=== PATIENT | female | born 1940 | race Caucasian/White ===

== ENCOUNTER 2017-10-21 08:53 | Day surgery (SDC) | payer OTHER ==
[~2017-10-21] VITALS: Ht 165.1 cm; Wt 72.5 kg
[2017-10-21] MEDS ORDERED: SODIUM CHLORID 0.9% 500 ML BAG OTHER ONE (08:54)
[2017-10-21 10:18] VITALS: BP 170/85; PULSE 81; RESP 16; TEMP 98.2; O2SAT 100
[2017-10-21] MEDS ORDERED: VERA120T3 PO (10:25)
[2017-10-21] MEDS ORDERED: VITA250C3 CHEW (10:25)
[2017-10-21] MEDS ORDERED: VITA100021 SL (10:25)
[2017-10-21] MEDS ORDERED: AMLO2.5T PO (10:25)
[2017-10-21] MEDS ORDERED: ASPI-516 CHEW (10:25)
[2017-10-21] MEDS ORDERED: CLON0.5T PO (10:25)
[2017-10-21] MEDS ORDERED: UNIS25TA3 (10:25)
[2017-10-21] MEDS ORDERED: DIAZ10 PO (10:25)
[2017-10-21] MEDS ORDERED: DAPS5TAB PO (10:25)
[2017-10-21 10:32] LABS: APTT (PATIENT) 27.1 SEC (24.3-30.1); INTERNATIONAL NORMALIZED RATIO 1.1 RATIO; PROTHROMBIN TIME - PATIENT 10.7 SEC (9.8-11.6)
[2017-10-21 10:36] LABS: BASOPHIL % 0.6 % (0.0-2.0); EOSINOPHIL # 0.1 TH/MM3 (0-0.4); EOSINOPHIL % 2.6 % (0.0-4.0); HEMATOCRIT 39.9 % (35.0-46.0); HEMO FLAGS DIFF FINAL; LYMPH % 36.5 % (9.0-44.0); LYMPHOCYTE # 1.4 TH/MM3 (1.0-4.8); MEAN CELL VOLUME 91.7 FL (80.0-100.0); MEAN CORPUSCULAR HEMOGLOBIN 30.4 PG (27.0-34.0); MEAN CORPUSCULAR HGB CONC 33.1 % (32.0-36.0); NEUT % 51.3 % (16.0-70.0); PLATELET COUNT 169 TH/MM3 (150-450); RED BLOOD COUNT 4.35 MIL/MM3 (4.00-5.30); RED CELL DISTRIBUTION WIDTH 13.2 % (11.6-17.2); WHITE BLOOD COUNT 3.9 TH/MM3 (4.0-11.0)
[2017-10-21 10:48] LABS: POTASSIUM 3.9 MEQ/L (3.5-5.1)
[2017-10-21] MEDS ORDERED: SODIUM CHLORID 0.9% 500 ML INJ 500 ML IV SCH (12:00)
[2017-10-21] MEDS ORDERED: LORazepam 1 MG TAB SL SCH (12:00)
[2017-10-21] MEDS ORDERED: SODIUM CHLOR 0.9% 250 ML INJ 250 ML ONE (12:36)
[2017-10-21] MEDS ORDERED: ISOPROTERENOL HCL 1 MG/5 ML AMP ONE (12:36)
[2017-10-21] MEDS ORDERED: ceFAZolin INJ 1,000 MG VIAL ONE (13:10)
--- NOTE | 2017-10-21 13:30 | CATHPROC ---
[employer] HIS Report Study Information Study Number Admission Scheduled Start Study Start [id number] Oct 21 2017 8:53AM 10/21/2017 Oct 21 2017 11:55AM [place] Service Electrophysiology Study Admit Source Facility Department Other [facility] - Extractor Operator Physician and Clinical Staff Initial Sherrie Simons Insulating Machine Operator Shereen Card,SCIENCE TEACHER TECH2 Other Anesthesia, PASSENGER TIRE INSPECTOR Recorder Efrain Ann,RN Recorder Sunshine Diallo,BSRN Scrub Dannie Jimenez,RT(R) Equipment Time Computer Builder Description Size Mfg Part Number Used/Scraped [id number] 11:59 [employer] INDUSTRIES PACK, CCL CUSTOM * Used *[id number] 11:59 [employer] PACER WHITLEY, LIMB * 2530 *[id number] Used [id number] 11:59 [employer] Dog BLANKET,WARM AIR CCL * Used *[id number] 12:20 [employer] MED[employer] CATHETER, JSN, QUAD FR 5 Used *[id number] 12:20 [employer] MEDICAL CATHETER, JSN, QUAD FR 5 Used *[id number] 12:20 [employer] MEDICAL CATHETER, JSN, QUAD FR 5 Used *[id number] 12:21 [employer] MEDICAL CATHETER, JSN, QUAD FR 5 Used *[id number] [id number] 12:19 [employer] MEDICAL SHEATH, EPS, FR5 FAST CATH FR 5 Used *[id number] [id number] 12:20 [employer] MEDICAL SHEATH, EPS, FR5 FAST CATH FR 5 Used *[id number] 12:20 [employer] MEDICAL SHEATH, EPS, FR5 FAST CATH FR 5 Used *[id number] 12:20 [employer] MEDICAL SHEATH, EPS, FR6 FAST CATH FR 6 Used *[id number] 12:56 [employer] Used INSERTION *[id number] History: Current Medications Medication Dosage/Unit Route Frequency Last Date/Time Taken ASA History: Allergies Allergy Reaction No Known Allergies iodine History: Risk Factors Hypertension Yes Labs Hgb (g/dl) Hct (%) RBC (MIL/MM3) WBC (l/cumm) Platelets (thousands) 11.60-17.00 35.00-51.00 4.00-5.90 4.00-11.00 150.00-450.00 13.2 39.9 4.3 3.9 169 Glucose (mg/dl) BUN (mg/dl) Creatinine (mg/dl) BUN:Creatinine (1:x) 74.00-106.00 7.00-18.00 0.50-1.30 10.00-20.00 97 11 0.6 18.3 Na (meq/l) K (meq/l) Cl (meq/l) CO2 (mmol/L) Ca (mg/dl) 136.00-145.00 3.50-5.10 98.00-107.00 21.00-32.00 8.50-10.10 140 3.9 105 29 8.9 INR (PTT:PT) 0.90-1.10 1.1 Medication Medication Total Dose (Bolus/Oral) Medication Total Dosage/Unit 1% XYLOCAINE 20 mL LIDOCAINE 30 mg Medications (Bolus/Oral) Medication Time Given Dosage/Unit Administered By Reason 1% XYLOCAINE 10/21/2017 12:34:42 PM 20 mL Sherrie Alarcon 20 mL 1% XYLOCAINE given in lab by Sherrie Alarcon in Right Groin via Subcutaneous. Ordered by Lashon Alarcon. LIDOCAINE 10/21/2017 1:03:45 PM 30 mg Sherrie Alarcon 30 mg LIDOCAINE given in lab by Sherrie Alarcon in CHEST . Ordered by Sherrie Alarcon. Medication (Drip) Medication Time Given Dosage/Unit Concentration/Unit Diluent (ml) Solution ISUPREL 10/21/2017 12:49:53 PM 2 mcg/min 1 mg 250 NaCl .9 2 mcg/min ISUPREL given in lab by Anesthesia, PASSENGER TIRE INSPECTOR via Peripheral IV. Pump/Drip Flow = 30 ml/hr using NaCl .9 with a concentration of 1 mg in 250 ml. Ordered by Sherrie Alarcon. IV Solutions 10/21/2017 12:12:29 PM 0 mL (IV) NaCl .9 IV Solutions given in lab by Anesthesia, PASSENGER TIRE INSPECTOR in Left Antecubital via Peripheral IV. Pump/Drip Flow = 50 ml/hr using NaCl .9. Ordered by Sherrie Alarcon. Reason: As per physicians verbal order. IV Solutions 10/21/2017 12:12:52 PM 0 mL (IV) NaCl .9 IV Solutions given in lab by Anesthesia, PASSENGER TIRE INSPECTOR in Left Antecubital via Peripheral IV. Pump/Drip Flow = 50 ml/hr using NaCl .9. Ordered by Sherrie Alarcon. Reason: As per physicians verbal order. Initial Case Assessment Cardiovascular HR NIBP Chest Pain 82 134/79 0 Edema Present Skin color Skin None Normal Warm Dry Neurological State Oriented to time-place- Alert Moves all extremities person Respiration - General Respiration Rate SpO2 (%) (B/min) 18 98 Chronological Log Time Study Chronological Log 12:07:35 Patient arrived via Bed. 12:07:38 Patient Name, D.O.B, / Armband Verified By R.N. 12:07:40 Consent signed by the physician and the patient and verified by the Extractor Operator staff. 12:07:41 Pre-op and post- op instructions given; patient acknowledges understanding of instruction s. 12:07:43 Verbal Stimulation=2 Physical Stimulation=2 Airway=2 Respiration=2 TOTAL=10. (0=absent, 1 =limited, 2=present) 12:07:54 Anesthesia at bedside. Assumes care of patient. Brendan PASSENGER TIRE INSPECTOR 12:08:03 Patient has been NPO for More than 6Hrs. 12:08:06 Immediate Presedation assesment performed by physician. 12:08:08 Skin Breakdown- left leg thigh wound 12:12:04 Patient Warmer Placed on the Table. 12:12:07 Disposable Defibrillator Pads Placed On Patient. 12:12:09 Juan M Prominences Protected 12:12:12 A # 20 IV was noted in the Antecubital (left). Grade = ~GRADE~ 12:12:21 A # 20 IV was noted in the Antecubital (right). Grade = ~GRADE~ IV Solutions given in lab by Anesthesia, PASSENGER TIRE INSPECTOR in Left Antecubital via Peripheral IV. Pump/Dri p Flow = 50 ml/hr using 12:12:29 NaCl .9. Ordered by Sherrie Alarcon. Reason: As per physicians verbal order. IV Solutions given in lab by Anesthesia, PASSENGER TIRE INSPECTOR in Left Antecubital via Peripheral IV. Pump/Dri p Flow = 50 ml/hr using 12:12:52 NaCl .9. Ordered by Sherrie Alarcon. Reason: As per physicians verbal order. 12:13:09 History and physical on the chart or being dictated. Assessment: Initial Case, HR=82 BPM, NBAX=699/79 mmhg, Chest Pain=0, Edema=None, Color=Normal, Skin = Warm, Dry 12:13:12 Neurological: State=Alert, Ox3, MORRIS Respiration: Resp=18 B/min, SpO2=98 % 12:13:15 Table restraints applied according to hospital policy 12:13:18 Right groin prepped with 2% chlorhexidine, and draped after a 3 min. waiting time. 12:13:20 Left groin prepped with 2% chlorhexidine, and draped after a 3 min. waiting time. 12::28 MD notified ready. 12::57 MD responded. Time Out. Correct patient, procedure, procedure equipment, site and side verified with physicia n present. Time 12:34:26 concurred by MD, individual staff and PASSENGER TIRE INSPECTOR. Time Out #2 - Consents verified, patient in correct position, all results are labled and displa yed, safety precautions :: taken, antibiotics administered. Time out concurred by MD, individual staff and PASSENGER TIRE INSPECTOR in procedu re 12:34:30 Case Start 12:34:42 20 mL 1% XYLOCAINE given in lab by Sherrie Alarcon in Right Groin via Subcutaneous. Ordered b y Sherrie Alarcon. 12:36:47 A SHEATH, EPS, FR5 FAST CATH FR 5 was advanced into the Fem Vein (right) using the Modified Seldinger technique. 12:37:24 A SHEATH, EPS, FR5 FAST CATH FR 5 was advanced into the Fem Vein (right) using the Modified Seldinger technique. 12:37:27 A SHEATH, EPS, FR5 FAST CATH FR 5 was advanced into the Fem Vein (right) using the Modified Seldinger technique. 12:37:31 A SHEATH, EPS, FR6 FAST CATH FR 6 was advanced into the Fem Vein (right) using the Modified Seldinger technique. A CATHETER, JSN, QUAD FR 5 was advanced vis Fem Vein (right) and placed in the HRA. Placement w as visually 12:38:31 confirmed under fluoroscopy. A CATHETER, JSN, QUAD FR 5 was advanced vis Fem Vein (right) and placed in the HIS. Placement w as visually 12:38:47 confirmed under fluoroscopy. A CATHETER, JSN, QUAD FR 5 was advanced vis Fem Vein (right) and placed in the RVA. Placement w as visually 12:38:56 confirmed under fluoroscopy. A CATHETER, JSN, QUAD FR 5 was advanced vis Fem Vein (right) and placed in the RVOT. Placement was visually 12:39:03 confirmed under fluoroscopy. 12:40:59 EP STUDY IN PROGRESS 2 mcg/min ISUPREL given in lab by Anesthesia, PASSENGER TIRE INSPECTOR via Peripheral IV. Pump/Drip Flow = 30 ml/hr using NaCl .9 with 12:49:53 a concentration of 1 mg in 250 ml. Ordered by Sherrie Alarcon. EP STUDY COMPLETE 12:55:08 ISUPREL OFF EP STUDY COMPLETE 13:01:13 LOOP INSERT 13:03:25 CHEST PREPPED X 2 13:03:45 30 mg LIDOCAINE given in lab by Sherrie Alarcon in CHEST . Ordered by Sherrie Alarcon. 13:04:55 LOOP INSERTED 13:05:04 TESTING DEVICE 13:10:09 Cine recording checked. 13:10:15 Bedside Report will be given. 13:10:19 Implantable Device card placed in patient's chart. 13:10:23 Defibrillator and ground pads removed. Skin intact. 13:11:43 Sheaths removed; pressure applied to access site by Monique Stephenson. Hemostasis achieved. 13:20:00 Sterile dressing applied to site 13:21:00 No case complications noted. 13:28:51 Case End 13:40:00 Patient moved to [facility] and transported to [facility] in stable condition. End Study - Contrast Media Used In Study Contrast Total Opened (mL) Total Used (mL) Total Wasted (mL) Unspecified 0 0 0 End Study - Maximum Contrast Load Max Contrast Load (mL) 604.2 End Study - Radiation Exposure Fluoro Time (minutes) 1.2 End Study - Patient Disposition Complications Transferred To Interventional Outcome No Telemetry Bed successful
--- NOTE | 2017-10-22 14:30 | EKG ---
Date Performed: 10/21/2017 Time Performed: 10:25:12 PTAGE: 76 years EKG: Sinus rhythm . Right bundle branch block Inferior/lateral T wave changes Low QRS voltages in precordial leads Abno rmal ECG NO PREVIOUS TRACING DOCTOR: Grecia Sagastume Interpretating Date/Time 10/22/2017 14:25:46
--- NOTE | 2017-10-23 19:54 | MA ---
cc: XENA SCOTT M.D. DATE 10/23/2017 Electrophysiology study, CS cannulation, repeat electrophysiology study on Isuprel infusion, 3-D mapping for catheter placement. INDICATION Ms. Flood is a 76-year-old female with recurrent episode of tachyarrhythmia, very symptomatic for the past 3 years. Referred for electrophysiology study, possible ablation and possible loop insertion. The risks, the nature and the benefit of the procedure are clearly stated to her. The risks include pneumothorax, cardiac perforation, stroke, need for open heart surgery and even . The patient understood and agreed to proceed. PROCEDURE After written informed consent was obtained, the patient was brought to the EP lab where she was prepped and draped in the usual sterile fashion. Conscious sedation was initiated and maintained throughout the procedure by anesthesiologist. Once sedation verified, the right and left inguinal areas were anesthetized with 2% Xylocaine. Using modified Seldinger technique, the left femoral vein was cannulated on three occasions and three guidewires were advanced. Over the wire three 5-Ethiopian Hemaquet were advanced. Then the right femoral vein was cannulated on two occasions and two guidewire were advanced. Over the wire a 6 and an 8-Ethiopian Hemaquet were advanced. Then under fluoroscopic guidance through the 5 and 6-Ethiopian Hemaquet, four 5-Ethiopian Tariq curved quadripolar electrophysiology catheters were advanced and positioned on the His, upper right atrium, coronary sinus and right ventricular apex. Basic intervals were measured, they were within normal limits. At this point atrial pacing protocol was performed. Atrial pacing protocol consisted of incremental atrial pacing as well as programmed stimulation with up 1400 cycle length and up to one excess stimuli delivered. No tachyarrhythmia was induced. Then ventricular pacing protocol was performed. There was VA conduction. Ventricular pacing protocol consisted of incremental ventricular pacing as well as programmed stimulation with ___ cycle length and up to three extra stimuli delivered. No tachyarrhythmia was induced. Then Isuprel infusion was initiated at 5 mics. Atrial and ventricular pacing protocol was performed, again no tachyarrhythmia was induced. Post Isuprel no tachyarrhythmia was induced. At that point procedure was complete. All catheters were removed. The patient going to be kept on the table because of frequent episodes of dizziness and syncope and tachyarrhythmia, a loop recorder will be inserted. No incident to report. The patient tolerated procedure. Blood loss minimal. IMPRESSION 1. Electrocardiogram. At baseline the patient was in sinus. Postprocedure electrocardiogram was unchanged. 2. Basic interval. Base cycle length was 880 milliseconds. AH was at 65 and HV at 60 milliseconds. 3. Atrial pacing protocol. Wenckebach of the node was around 440 milliseconds at baseline. No tachyarrhythmia was induced. 4. Ventricular pacing protocol. No VA conduction. No tachyarrhythmia was induced. CONCLUSION Negative electrophysiology study for supra and ventricular tachyarrhythmia. COMMENT AND RECOMMENDATIONS As mentioned before, the patient going to be kept on the table. A loop recorder will be inserted for arrhythmia monitoring. MD NORMA Evans/KK /5:32 PM /7:30 PM
--- NOTE | 2017-10-24 05:58 | MP ---
cc: XENA SCOTT M.D. DATE OF SURGERY October 21, 2017 PROCEDURE PERFORMED Loop recorder insertion. INDICATIONS FOR PROCEDURE Mrs. Flood is a 76-year-old female with recurrent tachyarrhythmia and near-syncope to undergo loop recorder insertion. The risks, the nature and the benefit of the procedure are clearly stated to the patient before electrophysiology study which includes pneumothorax, infection and even . The patient understood and agreed to proceed. PROCEDURE As written informed consent was obtained preop prior to electrophysiology study, the patient was kept on the table where she was prepped and draped in the usual sterile fashion. Conscious sedation was continued and maintained by anesthesiologist. Once sedation was verified, the left parasternal area was anesthetized with 2% Xylocaine. Using the cutter, an 11-cm incision was made. Subsequently the loop was injected under the skin. After adequate sensing obtained, the border was reapproximated using Dermabond and Steri-Strips. No incident reported. The patient tolerated the procedure. Blood loss minimal. 1. IMPLANTED HARDWARE: The implanted loop recorder is a [employer] Reveal LINQ11, serial number is [id number]. 2. SETTINGS: The device is set for raheem under 40, tachy over 150. CONCLUSION Successful loop recorder insertion. COMMENT AND RECOMMENDATIONS The patient is going to be transferred to the telemetry unit. He will be observed and when stable can be discharged home. Xena Scott MD HS/SSB /5:35 PM /5:44 AM
== END 2017-10-21 16:29 | disposition home or self-care (01) ==
LOC: HCAT 08:53 → HDIC 08:55 → HCAT 16:29
PROVIDERS: ATTEND Internal Medicine Interventional Cardiology
DX: I47.1 Supraventricular tachycardia (principal); R55 Syncope and collapse; R53.1 Weakness; I65.23 Occlusion and stenosis of bilateral carotid arteries; E78.5 Hyperlipidemia, unspecified; I10 Essential (primary) hypertension; K90.0 Celiac disease; R07.9 Chest pain, unspecified
CPT/HCPCS: 00530; 33282; 80048; 85025; 85610; 85730; 86850; 86900; 86901; 93005; 93620; 93623; C1730; C1764; J0690; J7040; J7050